=== PATIENT | male | born 1970 | race Caucasian/White ===

== ENCOUNTER 2017-05-20 11:45 | Emergency (ER) | payer OTHER ==
[2017-05-20] MEDS ORDERED: Sodium Chloride 0.9% 10 ML Syringe FLUSH PRN (11:52)
[2017-05-20] MEDS ORDERED: Iopamidol 612 MG/ML 150 ML Bottle IVPUSH ONE (11:52)
[2017-05-20] MEDS ORDERED: Metoclopramide 10 MG/2 ML SDV IVPUSH ONE (11:53)
[2017-05-20] MEDS ORDERED: Sodium Chloride 0.9% 1,000 ML ONE (11:56)
--- NOTE | 2017-05-20 11:57 | EDM.PDOC ---
ED HPI GENERAL MEDICAL PROBLEM - General Chief Complaint: Trauma Stated Complaint: [facility] Time Seen by Provider: 05/20/17 11:52 Source of Information: Reports: Patient History Limitations: Reports: No Limitations - History of Present Illness INITIAL COMMENTS - FREE TEXT/NARRATIVE: 46-year-old male brought to the ED by [facility]. Apparently the patient was working at a [employer] site. 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 It was a period of loss of consciousness but nobody concomitant per how long. He was then asking the same questions over and over again as to what has happened to him. He has no amnesia for the event. He can't remember much about anything this morning. Upon arrival he is alert and and now oriented. His [place] Coma Scale is 15 out of 15. Has some pain in the back of his head but no open we'll wounds. C-collar in place will remain in place until seek spine cleared by CT. Has some abrasions and contusions to his mid right back involving ribs from thoracic 6 down to lumbar to area. His full unrestricted range of motion of his lower extremities . Left upper extremity is normal. He has a contusion over the dorsal aspect of his right hand and wrist area. Able to make a full fist however without much pain or discomfort. 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 He's not asking the same questions over and over again he was actively smiling) Worsens with: Reports: Other (Movement of the back and chest area.) Context: Reports: Trauma (Fall from height of 5-6 feet landing on a steel retaining wall.). Denies: Activity, Exercise, Lifting, Sick Contact Associated Symptoms: Reports: Confusion (Initially very confused and disoriented asking the same questions over and over again as to what happened to him since that time he is improved. Note was about an hour ride from the ), Headaches. 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 [No Known Home Meds] 05/20/17 [History] Social & Family History - Living Situation & Occupation Living situation: Reports: Occupation: Employed Review of Systems - Review of Systems Review Of Systems: See Below Constitutional: Reports: No Symptoms Eyes: Reports: No Symptoms Ears: Reports: Clear Discharge Nose: Reports: No Symptoms Mouth/Throat: Reports: No Symptoms Respiratory: Reports: No Symptoms, Other (Pain right posterior back ribs.). Denies: Shortness of Breath, Wheezing Cardiovascular: Reports: Chest Pain (Posterior lateral in the right side) GI/Abdominal: Reports: No Symptoms Genitourinary: Reports: No Symptoms Musculoskeletal: Reports: Other (Back pain both thoracic and lumbar on the right side. Some pain from and swelling on the dorsal aspect of his right hand and wrist.) Skin: Reports: No Symptoms (No open wounds.) Neurological: Reports: Headache. Denies: Confusion, Dizziness, Numbness, Pre- Existing Deficit, Seizure, Syncope, Tingling (Mild), Tremors, Trouble Speaking, Difficulty Walking, Weakness, Change in Speech, Gait Disturbance, Other Psychiatric: Reports: No Symptoms ED EXAM, GENERAL - Physical Exam Exam: See Below Exam Limited By: No Limitations General Appearance: Alert, WD/WN, No Apparent Distress Eye Exam: Bilateral Eye: Normal Fundi, Normal Inspection, PERRL Ears: Normal TMs Nose: Normal Inspection, Normal Mucosa, No Blood Throat/Mouth: Normal Inspection, Normal Lips, Normal Teeth, Normal Oropharynx Head: Atraumatic, Normocephalic, Other (No palpable deformities hematomas or open wounds. No localized tenderness.) Neck: Other (He is immobilized in cervical collar and will remain that way until cleared by CT scan. He denies any pain in his neck at this time) Respiratory/Chest: No Respiratory Distress, Lungs Clear, Normal Breath Sounds, No Accessory Muscle Use. No: Decreased Breath Sounds, Crackles, Rales, Rhonchi , Wheezing, Stridor, Pleural Rub, Accessory Muscle Use, Retractions, Splinting, Prolonged Expiration Cardiovascular: Normal Peripheral Pulses, Regular Rate, Rhythm, No Edema, No Gallop, No Murmur, Other (Heart rate is 85 and sinus.) Peripheral Pulses: 2+: Posterior Tibial (L), Posterior Tibial (R), Dorsalis Pedis (L), Dorsalis Pedis (R) GI/Abdominal: Normal Bowel Sounds, Soft, Non-Tender, No Organomegaly, No Distention, No Abnormal Bruit, No Mass, Pelvis Stable, Other (Previous surgical scar under the umbilicus.) Back Exam: CVA Tenderness (R) ( Does have some mild right costovertebral angle tenderness.), Other (He has some abrasions superficial to the right thoracic spine and ribs. No malalignment of the spinous processes appreciated. This travels from thoracic 6 to lumbar to area.) Extremities: Other (Swelling over the dorsal aspect of his right hand and wrist. ) Neurological: Alert, Oriented, CN II-XII Intact, Normal Cognition, Normal Gait Psychiatric: Normal Affect, Normal Mood Skin Exam: Warm, Dry, Intact, Normal Color, No Rash Course - Vital Signs Last Recorded V/S: Last Vital Signs Temp 36.3 C 05/20/17 11:45 Pulse 85 05/20/17 11:45 Resp 16 05/20/17 11:45 BP 129/71 05/20/17 11:45 Pulse Ox 99 05/20/17 11:45 - Orders/Labs/Meds Orders: Active Orders 24 hr Category Date Time Status Hand Comp Min 3V Rt [CR] Stat Exams 05/20/17 12:01 Taken Labs: Laboratory Tests 05/20/17 05/20/17 Range/Units 11:55 11:55 WBC 10.29 H (4.23-9.07) K/mm3 RBC 5.12 (4.63-6.08) M/mm3 Hgb 14.7 (13.7-17.5) gm/L Hct 42.8 (40.1-51.0) % MCV 83.6 (79.0-92.2) fl MCH 28.7 (25.7-32.2) pg MCHC 34.3 (32.2-35.5) g/dl RDW Std Deviation 39.4 (35.1-43.9) fL Plt Count 188 (163-337) K/mm3 MPV 10.1 (9.4-12.3) fl Neutrophils % (Manual) 84 H (40-60) % Band Neutrophils % 2 (0-10) % Lymphocytes % (Manual) 12 L (20-40) % Atypical Lymphs % 0 % Monocytes % (Manual) 2 (2-10) % Eosinophils % (Manual) 0 L (0.8-7.0) % Basophils % (Manual) 0 L (0.2-1.2) Platelet Estimate Adequate RBC Morph Comment Normal Sodium 142 (136-145) mEq/L Potassium 3.6 (3.5-5.1) mEq/L Chloride 107 (98-107) mEq/L Carbon Dioxide 26 (21-32) mEq/L Anion Gap 12.6 (5-15) BUN 18 (7-18) mg/dL Creatinine 1.2 (0.7-1.3) mg/dL Est Cr Clr Drug Dosing 80.18 mL/min Estimated GFR (MDRD) > 60 (>60) mL/min BUN/Creatinine Ratio 15.0 (14-18) Glucose 109 H (74-106) mg/dL Calcium 8.6 (8.5-10.1) mg/dL Total Bilirubin 0.4 (0.2-1.0) mg/dL AST 32 (15-37) U/L ALT 42 (16-63) U/L Alkaline Phosphatase 62 (46-116) U/L Total Protein 7.1 (6.4-8.2) g/dl Albumin 4.0 (3.4-5.0) g/dl Globulin 3.1 gm/dL Albumin/Globulin Ratio 1.3 (1-2) Ethyl Alcohol 0.00 (0.00) gm% Meds: Medications Discontinued Medications Generic Name Dose Route Start Last Admin Trade Name Freq PRN Reason Stop Dose Admin Sodium Chloride Confirm 05/20/17 11:56 05/20/17 11:57 Normal Saline Administered 05/20/17 11:57 Not Given Dose 1,000 mls @ as directed .ROUTE .STK-MED ONE Sodium Chloride 1,000 mls @ 150 mls/hr 05/20/17 12:00 05/20/17 12:00 Normal Saline IV 150 mls/hr ASDIRECTED MONICA Administration Iopamidol 150 ml 05/20/17 11:52 05/20/17 12:12 Isovue-300 (61%) IVPUSH 05/20/17 11:53 125 ml ONETIME ONE Administration Metoclopramide HCl 7.5 mg 05/20/17 11:53 05/20/17 12:01 Reglan IVPUSH 05/20/17 11:54 7.5 mg ONETIME ONE Administration Sodium Chloride 10 ml 05/20/17 11:52 05/20/17 12:12 Saline Flush FLUSH 10 ml ONETIME PRN Administration IV FLUSH - Radiology Interpretation Free Text/Narrative:: 46-year-old male injured in the workplace this morning. 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 His head hard was lost and did lose consciousness for a period of time. He was then asked Ms. same questions over and over again en route to [place] suggesting concussive illness. He is immobilized in cervical collar and no spine board. He has some diffuse pain and superficial abrasions to his mid thoracic and upper lumbar spine at lumbar 2 area. His contusion to the dorsal aspect of his right hand and wrist area. No open wounds are identified. Nothing that would require tetanus toxoid at this time. Plan CT head CT cervical spine CT thoracic lumbar spine and chest abdomen pelvis with IV contrast. Routine labs including an ethanol level I do not smell any alcohol on his breath this time. For the most part appears that his injuries are mild. - Re-Assessments/Exams Free Text/Narrative Re-Assessment/Exam: 05/20/17 12:40: CT scan of the brain and head is within normal limits showing no intracranial hemorrhage mass effect or fracture. Cervical spine reveals advanced degenerative changes between the disc space of 34 and 5 levels. This suggest previous trauma. Is no malalignment or new fractures. Similarly in the thoracic and lumbar spine there is normal alignment with some mid thoracic spine degenerative changes appreciated. No fractures are identified. Spaces are well maintained. No transverse process fractures identified and lumbar spine. CT the abdomen and pelvis and chest again is within normal limits showing no injury to the solid organs no rib fractures identified posterior laterally on the right side. Vessels and heart are normal. Lungs are clear. I therefore took his C-spine collar off and set him up. He will receive some clear fluids orally. We'll then get him up walking and see how he feels. 05/20/17 13:00: He is well aware of that right back discomfort with up and walking but he is actually ambulating well. I did speak with Dr. Menjivar who is a physician who looks after the workers for his company. Dr. 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 would remain off compensation and be paid normally. I concur with this as the patient seems to be functioning at a fairly high level. Dr. Menjivar also will arrange follow-up appointments for him if he continues to have any post concussion syndrome in 7-10 days time. Departure - Departure Time of Disposition: 13:13 Disposition: Home, Self-Care 01 Clinical Impression: Closed head injury with concussion Qualifiers: Encounter type: initial encounter Loss of consciousness presence/duration: with LOC of 30 min or less Qualified Code(s): S06.0X1A - Concussion with loss of consciousness of 30 minutes or less, initial encounter Contusion of right side of mid back Qualifiers: Encounter type: initial encounter Qualified Code(s): S20.221A - Contusion of right back wall of thorax, initial encounter Contusion of multiple sites of right hand and wrist Qualifiers: Encounter type: initial encounter Qualified Code(s): S60.221A - Contusion of right hand, initial encounter - Discharge Information Instructions: Concussion, Adult, He[place]-en-Scul, Head Injury, Adult Referrals: PCP,None [Primary Care Provider] - Forms: Return to Work/School Form Additional Instructions: Evaluation in the emergency room today after a fall sustained in the workplace. From what we can gather you fell from the back of your truck landing hard on a steel [place]. There is reported loss of consciousness for none known. Of time with amnesia for the event and certainly initially asking paramedics the same questions over and over again indicating a concussion has occurred. CT of the head and neck did not reveal any fractures or swelling or bleeding in the brain. Similarly C-spine of the cervical spine shows no malalignment. Similarly CT of the mid and lower back were carried out to do not reveal any broken bones. Contusion is occurred to the musculature of the right lower back and flank area. Similarly contused her dorsal right hand and wrist area has occurred with swelling evident. No fractures identified on x-ray of this area. CT of the chest abdomen and pelvis were normal. Due to the nature of the trauma and closed head injury with loss of consciousness and cushion symptoms he will her be be placed off work for the next 10 days. It is important to get as much rest as possible for the next 48 hours with no strenuous activity whatsoever. This allows bruise brain cells to slowly heal. Postconcussion symptoms can be nausea changes in vision feeling of being off balance irritability crankiness difficult to focus on task on hand at hand etc. SPECT be much more sore tomorrow and the next day due to soft tissue injuries to your flank and back area. It is okay to take Motrin or Aleve .Aleve 2 tablets every 8 hours Motrin 600 mg every 6 hours to relieve pain and inflammation. Ice pack to your flank area for one half hour out of every 4 hours today and tomorrow may reduce soft tissue swelling in the muscles that were contused. - My Orders Last 24 Hours: My Active Orders 05/20/17 12:01 Hand Comp Min 3V Rt [CR] Stat - Assessment/Plan Last 24 Hours: My Active Orders 05/20/17 12:01 Hand Comp Min 3V Rt [CR] Stat
[2017-05-20] MEDS ORDERED: Sodium Chloride 0.9% 1,000 ML IV SCH (12:00)
[2017-05-20 12:05] VITALS: BP 129/71
--- NOTE | 2017-05-20 12:36 | CT ---
Head CT Technique: Multiple axial sections through the brain were obtained. Intravenous contrast was not utilized. Comparison: No previous study. Findings: Ventricles along with basal cisterns and sulci over the convexities are within normal limits for the patient's age. No abnormal parenchymal densities are seen. No evidence of intracranial hemorrhage. No midline shift or mass effect is seen. Bone window settings were reviewed which shows the visualized sinuses to appear clear. No acute calvarial abnormality is identified. Impression: 1. Nothing acute is seen on noncontrast head CT. Diagnostic code #1
--- NOTE | 2017-05-20 12:39 | CT ---
CT cervical spine Technique: Multiple axial sections were obtained from above C1 inferiorly to the bottom of T1. Reconstructed sagittal and coronal images were reviewed. Comparison: No previous study. Findings: Severe disc space narrowing is noted at C3-C4, C4-C5 and C5-C6. Degenerative endplate irregularity and cystic change is seen at these same levels. Mildly abnormal curvature is seen of the cervical spine which is due to degenerative change. Moderate to severe left-sided neural foraminal stenosis is noted at C4-C5. Moderate to severe left-sided neural foraminal stenosis is noted at C5-C6. Minimal left-sided neural foraminal stenosis is noted at C6-C7. No bony central canal stenosis is seen. Vertebral bodies and posterior arches are intact. No fracture is appreciated. Mastoid sinuses and middle ear cavities are clear. Posterior skull base is intact. No abnormal subluxation is seen on the reconstructed sagittal images. Mild degenerative change is also seen within the right temporomandibular joint. Impression: 1. Diffuse degenerative change. 2. No acute abnormality is identified on CT study of the cervical spine. Diagnostic code #2
--- NOTE | 2017-05-20 12:43 | CT ---
CT chest Technique: Multiple axial sections were obtained through the chest. Intravenous contrast was utilized. Comparison: No prior chest x-ray. Findings: Mediastinum and hilar regions show no adenopathy or mass. No pericardial thickening is seen. No chest wall abnormalities are noted. Lungs are clear. No pulmonary contusion is seen. No pleural effusions or pneumothorax is identified. Bone window settings were reviewed which shows no discrete rib fracture. Vertebral body heights are maintained within the thoracic spine. Sternum appears intact. Impression: 1. Nothing acute is seen on CT study of the chest. Diagnostic code #1 CT abdomen and pelvis Technique: Multiple axial sections were obtained from above the dome of the diaphragm inferiorly through the pubic symphysis. Intravenous contrast was utilized. No oral contrast has been given. Findings: Liver shows no focal parenchymal abnormality. Spleen appears within normal limits. Adrenal glands show no nodule. Kidneys show contrast enhancement and appear within normal limits. Pancreas is within normal limits. Aorta shows no aneurysmal dilatation. No retroperitoneal adenopathy or mesenteric abnormalities are seen. No pelvic mass or adenopathy is seen. Appendix is seen which appears normal. Small fat-containing left inguinal hernia is incidentally noted. Delayed images shows contrast within the ureters and bladder. No contrast extravasation is seen. Bone window settings were reviewed which shows no discrete bony abnormality within the pelvis or within the lumbar spine. Impression: 1. Incidental findings as noted above. Nothing acute is seen on CT study of the abdomen and pelvis. Diagnostic code #2
--- NOTE | 2017-05-20 12:45 | CT ---
CT thoracic spine Technique: Multiple axial sections were obtained through the thoracic spine. Reconstructed sagittal and coronal images were reviewed. Findings: Minimal endplate osteophytes are seen within the mid thoracic spine. Vertebral body heights and disc spaces are maintained. Vertebral bodies and posterior arches are intact with no fracture being seen. No abnormal subluxation is seen on the reconstructed sagittal images. Slight degenerative change noted within the apophyseal joints within the upper thoracic spine. No central canal stenosis or neural foraminal stenosis is seen. Impression: 1. Mild degenerative change as noted above. Nothing acute is appreciated on CT study of the thoracic spine. Diagnostic code #2
--- NOTE | 2017-05-20 12:54 | CT ---
CT lumbar spine Technique: Multiple axial sections through the lumbar spine were obtained. Reconstructed coronal and sagittal images were reviewed. Findings: Mild disc space narrowing is noted at L2-3. Anterior osteophytes are seen at L2-3. Slight circumferential disc bulge noted at L2-3 with posterior disc maintaining a concave margin. Minimal circumferential disc bulge noted noted at L3-4 with posterior disk having a mostly planar margin. No traumatic disc herniation is seen. Vertebral bodies and posterior arches are intact. No fracture is seen. No abnormal subluxation is seen on the reconstructed sagittal images. Impression: 1. Slight degenerative disc bulging. 2. Nothing acute is seen on CT study of the lumbar spine. Diagnostic code #2
--- NOTE | 2017-05-21 09:08 | CR ---
Right hand: Four views of the right hand were obtained. Comparison: No previous study. Mild deformity is noted within the distal aspect of the proximal phalanx compatible with old healed fracture. Slight joint space narrowing is noted within the first MCP joint. No acute fracture or other bony abnormality is appreciated. Impression: 1. Incidental findings. No acute abnormality is appreciated on right hand study. Diagnostic code #1
== END 2017-05-20 13:20 | disposition home or self-care (01) ==
LOC: JD.ED 11:45
DX: S06.0X1A Concussion with loss of consciousness of 30 minutes or less, initial encounter (principal); S20.221A Contusion of right back wall of thorax, initial encounter; S60.221A Contusion of right hand, initial encounter; Z88.0 Allergy status to penicillin; W17.89XA Other fall from one level to another, initial encounter
CPT/HCPCS: 36415; 70450; 71260; 72125; 72128; 72131; 73130; 74177; 80053; 85025; 96361; 96374; 99285; G0390; G0480; J2765; J7040; J7050; Q9967